=== PATIENT | male | born 1980 | race African-American/Black ===

== ENCOUNTER 2020-11-28 04:38 | Emergency (ER) | payer MEDICAID, OTHER ==
[~2020-11-28] VITALS: Ht 193 cm; Wt 122.7 kg
[~2020-11-28 04:38] MED LIST: ALBU8.5H3 IH
[2020-11-28 04:42] VITALS: BP 133/92
[2020-11-28] MEDS ORDERED: ACETAMINOPHEN 500 MG TABLET PO ONE (06:30)
[2020-11-28] MEDS ORDERED: PredniSONE 20 MG TABLET PO ONE (06:30)
[2020-11-28] MEDS ORDERED: ALBUTEROL SULFATE HFA 90 MCG/PUFF 8 GM INHALER IH ONE (06:30)
[2020-11-28 06:35] LABS: BASOPHILS % (AUTO) 1.4 % (0.0-2.0); HEMATOCRIT 46.9 % (41-53); HEMOGLOBIN 15.5 g/dL (13.5-17.5); LYMPHOCYTES # (AUTO) 1.1 K/uL (1.0-4.8); LYMPHOCYTES % (AUTO) 33.5 % (22.0-44.0); MEAN CORPUSCULAR HEMOGLOBIN 29.5 pg (26.0-34.0); MEAN CORPUSCULAR HGB CONC 33.1 G/dL (31.0-37.0); MEAN CORPUSCULAR VOLUME 89 fL (80-100); MONOCYTES # (AUTO) 0.4 K/uL (0.1-1.0); MONOCYTES % (AUTO) 13.1 % (2.0-9.0); NEUTROPHILS # (AUTO) 1.5 K/uL (1.8-7.7); PLATELET COUNT (AUTO) 193 K/uL (150-450); RED BLOOD CELL COUNT(AUTO) 5.27 MIL/uL (4.50-5.90); RED CELL DISTRIBUTION WIDTH 13.6 % (11.5-14.5)
[2020-11-28 06:52] LABS: ANION GAP 6 mmol/L (8-16); CALCIUM, TOTAL 8.3 mg/dL (8.8-10.5); CARBON DIOXIDE 31 mmol/L (22-29); CHLORIDE 104 mmol/L (98-107); CREATININE 1.29 mg/dL (0.60-1.30); GLOMERULAR FILTR. RATE CALC > 60 mL/min (>60); GLUCOSE,RANDOM 99 mg/dL (70-110); POTASSIUM 3.8 mmol/L (3.5-5.1); SODIUM SERUM 141 mmol/L (136-145); UREA NITROGEN, BLOOD 12 mg/dL (7-18)
[2020-11-28 06:58] LABS: ALANINE AMINOTRANSFERASE 48 U/L (12-78); ALBUMIN 3.4 g/dL (3.4-5.0); ALKALINE PHOSPHATASE 61 U/L (46-116); ASPARTATE AMINOTRANSFERASE 29 U/L (15-37); BILIRUBIN,TOTAL 0.2 mg/dL (0.1-1.0); TOTAL PROTEIN, SERUM 6.9 g/dL (6.4-8.2)
[2020-11-28 07:47] LABS: COVID AG,FIA SOURCE NASOPHARYNGEAL
== END 2020-11-28 08:18 | disposition home or self-care (01) ==
LOC: EMS 04:44
DX: J45.901 Unspecified asthma with (acute) exacerbation (principal); J06.9 Acute upper respiratory infection, unspecified; Z20.822 Contact with and (suspected) exposure to COVID-19
CPT/HCPCS: 36415; 80053; 85025; 87426; 94640; 96372; 99283; J7512; U0003; 99406; J3535

== ENCOUNTER 2021-01-12 04:55 | Emergency (ER) | payer OTHER ==
[~2021-01-12] VITALS: Ht 193 cm; Wt 122.7 kg
[2021-01-12 05:01] VITALS: BP 163/99
== END 2021-01-12 06:12 | disposition left against medical advice (07) ==
LOC: EMS 04:57
DX: U07.1 COVID-19 (principal); Z53.21 Procedure and treatment not carried out due to patient leaving prior to being seen by health care provider

== ENCOUNTER 2021-01-14 22:36 | Emergency (ER) | payer OTHER ==
[~2021-01-14] VITALS: Ht 193 cm; Wt 122.7 kg
[2021-01-15] MEDS ORDERED: PredniSONE 20 MG TABLET PO ONE (01:30)
[2021-01-15] MEDS ORDERED: ALBUTEROL SULFATE HFA 90 MCG/PUFF 8 GM INHALER IH ONE (01:30)
[2021-01-15] MEDS ORDERED: BENZONATATE 100 MG CAPSULE PO ONE (01:30)
[2021-01-15 02:00] VITALS: BP 146/85
== END 2021-01-15 03:07 | disposition home or self-care (01) ==
LOC: EMS 22:38
DX: J45.901 Unspecified asthma with (acute) exacerbation (principal); F17.210 Nicotine dependence, cigarettes, uncomplicated; Z86.73 Personal history of transient ischemic attack (TIA), and cerebral infarction without residual deficits; Z88.8 Allergy status to other drugs, medicaments and biological substances
CPT/HCPCS: 71045; 94640; 99283; J7512; J3535

== ENCOUNTER 2022-05-03 02:19 | Emergency (ER) | payer OTHER ==
[~2022-05-03] VITALS: Ht 193 cm; Wt 126.0 kg
[2022-05-03] MEDS ORDERED: IPRATROPIUM BROMIDE 0.5 MG/2.5 ML NEB SOLUTION NEB ONE ×2 (02:45→03:15)
[2022-05-03] MEDS ORDERED: PredniSONE 20 MG TABLET PO ONE (02:45)
[2022-05-03] MEDS ORDERED: ALBUTEROL SULFATE 2.5 MG/0.5 ML NEB SOLUTION NEB ONE (02:45)
[2022-05-03] MEDS ORDERED: ALBUTEROL SULFATE 5 MG/ML 20 ML NEB SOLN [BULK] NEB ONE (03:15)
[2022-05-03] MEDS ORDERED: ALBU8HFA IH (04:27)
[2022-05-03] MEDS ORDERED: PRED-554 PO (04:27)
[2022-05-03 05:00] VITALS: BP 132/74
[2022-05-03] MEDS ORDERED: ALBUTEROL SULFATE HFA 90 MCG/PUFF 8 GM INHALER IH ONE (05:00)
== END 2022-05-03 06:37 | disposition home or self-care (01) ==
LOC: EMS 02:20
DX: J45.901 Unspecified asthma with (acute) exacerbation (principal); F17.210 Nicotine dependence, cigarettes, uncomplicated; Z90.49 Acquired absence of other specified parts of digestive tract; Z88.8 Allergy status to other drugs, medicaments and biological substances
CPT/HCPCS: 99285; 94640; J7512; 94644; J3535

== ENCOUNTER 2023-03-12 02:16 | Emergency (ER) | payer OTHER ==
[~2023-03-12] VITALS: Ht 190.5 cm; Wt 140.0 kg
[~2023-03-12 02:16] MED LIST changes: +ALBU18HF12 IH; +PRED-554 PO
[2023-03-12 02:26] VITALS: BP 136/92; TEMP 98
[2023-03-12] MEDS ORDERED: ALBU18HF12 IH (02:27)
[2023-03-12] MEDS ORDERED: PRED-554 PO (02:27)
[2023-03-12] MEDS ORDERED: BUDE10.27 IH (02:27)
[2023-03-12] MEDS ORDERED: ALBUTEROL SULFATE 2.5 MG/0.5 ML NEB SOLUTION NEB ONE (02:30)
[2023-03-12] MEDS ORDERED: IPRATROPIUM BROMIDE 0.5 MG/2.5 ML NEB SOLUTION NEB ONE (02:30)
[2023-03-12] MEDS ORDERED: DEXAMETHASONE SOD PHOS 4 MG/ML 5 ML VIAL IM ONE (02:30)
[2023-03-12 03:00] VITALS: PULSE 77; RESP 20; O2SAT 97
[2023-03-12 03:08] VITALS: PULSE 79; RESP 20; O2SAT 97
[2023-03-12 03:22] VITALS: PULSE 81; RESP 18; O2SAT 100
== END 2023-03-12 03:28 | disposition home or self-care (01) ==
LOC: EMS 02:16
DX: J45.901 Unspecified asthma with (acute) exacerbation (principal); F17.210 Nicotine dependence, cigarettes, uncomplicated; Z90.49 Acquired absence of other specified parts of digestive tract
CPT/HCPCS: 99283; 94640; 96372; J1100

== ENCOUNTER 2024-05-22 20:45 | Emergency (ER) | payer OTHER ==
[~2024-05-22] VITALS: Ht 190.5 cm; Wt 127.3 kg
[~2024-05-22 20:45] MED LIST changes: +BUDE10.27 IH
[2024-05-22 20:58] VITALS: BP 152/88; PULSE 94; RESP 18; TEMP 98; O2SAT 94
[2024-05-22] MEDS ORDERED: PRED-554 PO (22:29)
[2024-05-22] MEDS ORDERED: BUDE10.26 IH (22:29)
[2024-05-22] MEDS ORDERED: ALBU18HF12 IH (22:29)
== END 2024-05-22 22:37 | disposition home or self-care (01) ==
LOC: EMS 20:45
DX: J45.901 Unspecified asthma with (acute) exacerbation (principal); F17.210 Nicotine dependence, cigarettes, uncomplicated; Z88.8 Allergy status to other drugs, medicaments and biological substances; Z79.51 Long term (current) use of inhaled steroids; Z79.52 Long term (current) use of systemic steroids
CPT/HCPCS: 99283; Z7502

== ENCOUNTER 2024-07-06 22:59 | Emergency (ER) | payer OTHER ==
[~2024-07-06] VITALS: Ht 193 cm; Wt 122.7 kg
[~2024-07-06 22:59] MED LIST changes: +BUDE10.26 IH
[2024-07-06 23:07] VITALS: TEMP 97.7
[2024-07-07] MEDS ORDERED: PRED-554 PO (02:08)
[2024-07-07] MEDS ORDERED: BUDE10.27 IH (02:08)
[2024-07-07] MEDS ORDERED: ALBU18HF12 IH (02:08)
[2024-07-07] MEDS: IPRATROPIUM BROMIDE 0.5 MG/2.5 ML NEB SOLUTION NEB ONE (02:20)
[2024-07-07] MEDS: ALBUTEROL SULFATE 2.5 MG/0.5 ML NEB SOLUTION NEB ONE (02:20)
[2024-07-07 02:25] VITALS: PULSE 85; RESP 18; O2SAT 96
[2024-07-07] MEDS: PredniSONE 20 MG TABLET PO ONE (02:38)
[2024-07-07 02:42] VITALS: BP 138/86; PULSE 78; RESP 16; O2SAT 100
== END 2024-07-07 02:44 | disposition home or self-care (01) ==
LOC: EMS 23:20
DX: J45.901 Unspecified asthma with (acute) exacerbation (principal); Z88.8 Allergy status to other drugs, medicaments and biological substances; Z79.51 Long term (current) use of inhaled steroids; Z79.52 Long term (current) use of systemic steroids
CPT/HCPCS: 99283; 94640; J7512

== ENCOUNTER 2025-03-05 14:23 | Emergency (ER) | payer OTHER ==
[~2025-03-05] VITALS: Ht 193 cm; Wt 118.2 kg
[2025-03-05] MEDS ORDERED: AMLO-257 PO (14:43)
[2025-03-05] MEDS ORDERED: PRED-554 PO (15:40)
[2025-03-05] MEDS ORDERED: ALBU2.5V39 NEB (15:40)
[2025-03-05] MEDS ORDERED: ALBU18HF12 IH (15:40)
[2025-03-05] MEDS: ALBUTEROL SULFATE HFA 90 MCG/PUFF 8 GM INHALER IH ONE (15:50)
[2025-03-05 15:56] VITALS: BP 145/92; TEMP 98.005280
[2025-03-05] MEDS ORDERED: BUDE10.26 IH (15:58)
[2025-03-05 16:23] VITALS: PULSE 90; RESP 18; O2SAT 98
== END 2025-03-05 16:00 | disposition home or self-care (01) ==
LOC: EMS 14:23
DX: J45.909 Unspecified asthma, uncomplicated (principal); F17.210 Nicotine dependence, cigarettes, uncomplicated; I10 Essential (primary) hypertension; Z76.0 Encounter for issue of repeat prescription; Z79.51 Long term (current) use of inhaled steroids; Z79.52 Long term (current) use of systemic steroids; Z79.899 Other long term (current) drug therapy; Z86.73 Personal history of transient ischemic attack (TIA), and cerebral infarction without residual deficits; Z88.5 Allergy status to narcotic agent
CPT/HCPCS: 99283; 94640; J7512; J3535; 94760

== ENCOUNTER 2025-04-24 12:51 | Emergency (ER) | payer OTHER ==
[~2025-04-24] VITALS: Ht 190.5 cm; Wt 122.7 kg
[~2025-04-24 12:51] MED LIST changes: +ALBU2.5V39 NEB; -ALBU8.5H3 IH; +AMLO-257 PO; -BUDE10.27 IH
[2025-04-24 13:15] VITALS: PULSE 80; RESP 28; O2SAT 88
[2025-04-24] MEDS: ALBUTEROL SULFATE 2.5 MG/0.5 ML NEB SOLUTION NEB ONE (13:23)
[2025-04-24] MEDS: IPRATROPIUM BROMIDE 0.5 MG/2.5 ML NEB SOLUTION NEB ONE (13:24)
[2025-04-24 13:28] VITALS: PULSE 77; O2SAT 98
[2025-04-24 14:05] VITALS: PULSE 77; RESP 28; O2SAT 98
[2025-04-24 14:05] LABS: COVID AG,FIA SOURCE NASAL SWAB
[2025-04-24 14:28] LABS: SARS-COV2 (COVID) ANTIGEN,FIA Negative (Negative)
[2025-04-24 14:31] LABS: INFLUENZA TYPE A NEGATIVE FOR TYPE A (NEGATIVE); INFLUENZA TYPE B POSITIVE FOR TYPE B (NEGATIVE)
[2025-04-24 14:44] VITALS: BP 159/87; PULSE 96; RESP 36; TEMP 97.5; O2SAT 96
[2025-04-24] MEDS ORDERED: PRED-554 PO (14:45)
[2025-04-24] MEDS ORDERED: OSEL75CA45 PO (14:45)
[2025-04-24] MEDS ORDERED: BUDE10.26 IH (14:45)
[2025-04-24] MEDS ORDERED: ALBU18HF12 IH (14:45)
== END 2025-04-24 14:56 | disposition home or self-care (01) ==
LOC: EMS 12:51
DX: J10.1 Influenza due to other identified influenza virus with other respiratory manifestations (principal); I10 Essential (primary) hypertension; F17.210 Nicotine dependence, cigarettes, uncomplicated; J45.901 Unspecified asthma with (acute) exacerbation; Z79.51 Long term (current) use of inhaled steroids; Z79.52 Long term (current) use of systemic steroids; Z79.899 Other long term (current) drug therapy; Z86.73 Personal history of transient ischemic attack (TIA), and cerebral infarction without residual deficits; Z20.822 Contact with and (suspected) exposure to COVID-19
CPT/HCPCS: 99284; 96374; 71045; 87426; 87804; 94640; J2919; 94060; 94644; J7613